=== PATIENT | male | born 1980 | race Caucasian/White ===

== ENCOUNTER 2016-06-12 15:14 | Emergency (ER) | payer MEDICARE | END 2016-06-12 16:12 | disposition home or self-care (01) | LOC: ER 15:14 | DX: J20.9 Acute bronchitis, unspecified (principal); Z86.19 Personal history of other infectious and parasitic diseases; Z98.890 Other specified postprocedural states; F17.210 Nicotine dependence, cigarettes, uncomplicated; Z79.899 Other long term (current) drug therapy | CPT/HCPCS: 87070; 87400; 87880; 99283 ==